=== PATIENT | female | born 1945 | race Caucasian/White ===

== ENCOUNTER 2023-06-22 13:21 | Inpatient (IN) ==
[2023-06-22] MEDS ORDERED: IOPAMIDOL 100 ML BOTTLE IV ONE (13:22)
[2023-06-22 15:28] LABS: POC Calcium, Ionized 1.04 (1.16-1.32); POC Creatinine 0.9 (0.6-1.2); POC Potassium 3.6 (3.3-5.1)
[2023-06-22 16:02] LABS: Basophils # (Auto) 0.04 K/mcL (0.00-0.30); Basophils % (Auto) 0.6 % (0.0-2.0); Eosinophils # (Auto) 0.21 K/mcL (0.00-0.70); Hematocrit 43.7 % (34.1-44.9); Hemoglobin 14.3 g/dL (11.2-15.7); Lymphocytes # (Auto) 1.37 K/mcL (1.50-4.80); Lymphocytes % (Auto) 19.7 % (15.5-49.0); Mean Corpuscular HGB Conc 32.7 g/dL (31.0-36.0); Mean Platelet Volume 8.9 fL (8.8-12.5); Monocytes # (Auto) 0.61 K/mcL (0.10-0.90); Monocytes % (Auto) 8.8 % (1.0-12.0); Neutrophils % (Auto) 67.5 % (38.0-78.0); Platelet Count 273 K/mcL (140-440); RBC 4.65 M/mcL (3.59-5.38); Red Cell Distribution Width 12.9 % (11.5-14.5)
[2023-06-22] MEDS ORDERED: METHOCARBAMOL 1,000 MG/10 ML VIAL IV ONE (17:30)
[2023-06-22] MEDS: HYDROmorphone 0.5 MG/0.5 ML SYRINGE IV PRN ×2 (17:56→19:24)
[2023-06-22] MEDS ORDERED: traMADol (PP) 50 MG TABLET (#4) PO PRN (22:56)
[2023-06-22] MEDS ORDERED: SUMAtriptan SUCCINATE 50 MG TABLET PO PRN (22:56)
[2023-06-22] MEDS ORDERED: NITROGLYCERIN 0.4 MG TAB.SUBL SL PRN (22:56)
[2023-06-22 22:57] LABS: Phosphorous 2.7 mg/dL (2.5-4.5); Thyroid Stimulating Hormone 4.12 uIU/mL (0.27-5.01)
[2023-06-23] MEDS: HYDROmorphone 0.5 MG/0.5 ML SYRINGE IV PRN ×4 (00:32→09:04)
[2023-06-23] MEDS: 0.9 % SODIUM CHLORIDE 10 ML SYRINGE IV SCH ×3 (05:40→20:49)
[2023-06-23] MEDS: OMEPRAZOLE 20 MG CAPSULE PO SCH ×2 (06:51→16:34)
[2023-06-23] MEDS: LEVOTHYROXINE SODIUM 112 MCG TABLET PO SCH (06:51)
[2023-06-23 07:10] LABS: Hematocrit 40.4 % (34.1-44.9); Hemoglobin 13.4 g/dL (11.2-15.7); Mean Cell Volume 93.7 fL (80.0-100.0); Mean Corpuscular HGB Conc 33.2 g/dL (31.0-36.0); Platelet Count 270 K/mcL (140-440); RBC 4.31 M/mcL (3.59-5.38); Red Cell Distribution Width 12.9 % (11.5-14.5); WBC 5.7 K/mcL (4.5-11.0)
[2023-06-23 08:12] LABS: Blood Urea Nitrogen 10 mg/dL (8-23); Calcium 8.8 mg/dL (8.6-10.4); Carbon Dioxide 25 mmol/L (22-30); Chloride 100 mmol/L (96-108); Glomerular Filtration Rate 70; Glucose 99 mg/dL (70-105)
[2023-06-23] MEDS: POTASSIUM CHLORIDE 20 MEQ TABLET PO SCH ×2 (08:49→19:46)
[2023-06-23] MEDS: DOCUSATE SODIUM 100 MG CAPSULE PO SCH ×2 (08:49→20:49)
[2023-06-23] MEDS: HYDROXYCHLOROQUINE 200 MG TABLET PO SCH ×2 (08:49→20:49)
[2023-06-23] MEDS: NITROFURANTOIN SR 100 MG CAPSULE PO SCH (08:49)
[2023-06-23] MEDS: predniSONE 5 MG TABLET PO SCH (08:50)
[2023-06-23] MEDS: CALCIUM (OYSTER SHELL) 500 MG TABLET PO SCH ×2 (08:50→20:49)
[2023-06-23] MEDS: LEFLUNOMIDE 20 MG TABLET PO SCH (08:51)
[2023-06-23] MEDS: HEPARIN 5,000 UNIT/ML VIAL SQ SCH ×2 (09:04→20:49)
[2023-06-23 09:44] LABS: Eosinophils % (Manual) 2 % (0-7); Lymphocytes % 27 % (15-49); Monocytes % (Manual) 9 % (1-12); Platelet Estimate NORMAL (Normal); RBC Morphology NORMAL (Normal); Reactive Lymphocytes 1 % (0-2); Segmented Neutrophils % 61 % (38-78)
[2023-06-23] MEDS: ONDANSETRON 4 MG/2 ML VIAL IV PRN ×2 (10:45→20:52)
[2023-06-23] MEDS: HYDROmorphone 2 MG TABLET PO PRN (19:44)
[2023-06-23] MEDS: SENNOSIDES 1 TABLET PO SCH (20:48)
[2023-06-23] MEDS: VENLAFAXINE 75 MG CAP.XL.24H PO SCH (20:49)
[2023-06-23] MEDS: AMITRIPTYLINE 25 MG TABLET PO SCH (20:49)
[2023-06-23] MEDS: rOPINIRole 0.25 MG TABLET PO SCH (20:49)
[2023-06-24] MEDS: oxyCODONE IR 5 MG TABLET PO PRN ×3 (02:35→17:16)
[2023-06-24] MEDS: ACETAMINOPHEN 325 MG TABLET PO PRN (04:14)
[2023-06-24 06:53] LABS: Hemoglobin 12.9 g/dL (11.2-15.7); Mean Cell Volume 94.8 fL (80.0-100.0); Mean Corpuscular HGB Conc 32.3 g/dL (31.0-36.0); Mean Platelet Volume 9.3 fL (8.8-12.5); Platelet Count 259 K/mcL (140-440); RBC 4.22 M/mcL (3.59-5.38); WBC 6.7 K/mcL (4.5-11.0)
[2023-06-24 07:22] LABS: Blood Urea Nitrogen 8 mg/dL (8-23); Calcium 8.8 mg/dL (8.6-10.4); Carbon Dioxide 29 mmol/L (22-30); Chloride 104 mmol/L (96-108); Glomerular Filtration Rate 61; Glucose 87 mg/dL (70-105)
[2023-06-24] MEDS: NITROFURANTOIN SR 100 MG CAPSULE PO SCH (09:06)
[2023-06-24] MEDS: OMEPRAZOLE 20 MG CAPSULE PO SCH ×2 (09:07→17:16)
[2023-06-24] MEDS: LEVOTHYROXINE SODIUM 112 MCG TABLET PO SCH (09:07)
[2023-06-24] MEDS: predniSONE 5 MG TABLET PO SCH (09:07)
[2023-06-24] MEDS: HYDROXYCHLOROQUINE 200 MG TABLET PO SCH ×2 (09:08→20:36)
[2023-06-24] MEDS: POTASSIUM CHLORIDE 20 MEQ TABLET PO SCH ×3 (09:14→17:16)
[2023-06-24] MEDS: 0.9 % SODIUM CHLORIDE 10 ML SYRINGE IV SCH ×3 (09:15→20:37)
[2023-06-24] MEDS: DOCUSATE SODIUM 100 MG CAPSULE PO SCH ×2 (09:22→20:36)
[2023-06-24] MEDS: CALCIUM (OYSTER SHELL) 500 MG TABLET PO SCH ×2 (09:22→20:37)
[2023-06-24] MEDS: LEFLUNOMIDE 20 MG TABLET PO SCH (09:24)
[2023-06-24] MEDS: HEPARIN 5,000 UNIT/ML VIAL SQ SCH ×2 (09:25→20:36)
[2023-06-24 13:19] LABS: Basophils % (Manual) 1 % (0-2); Eosinophils % (Manual) 2 % (0-7); Lymphocytes % 19 % (15-49); Monocytes % (Manual) 7 % (1-12); Platelet Estimate NORMAL (Normal); RBC Morphology NORMAL (Normal); Reactive Lymphocytes 1 % (0-2); Segmented Neutrophils % 70 % (38-78)
[2023-06-24] MEDS: rOPINIRole 0.25 MG TABLET PO SCH (20:36)
[2023-06-24] MEDS: AMITRIPTYLINE 25 MG TABLET PO SCH (20:36)
[2023-06-24] MEDS: VENLAFAXINE 75 MG CAP.XL.24H PO SCH (20:37)
[2023-06-24] MEDS: SENNOSIDES 1 TABLET PO SCH (20:37)
[2023-06-24] MEDS: GABAPENTIN 300 MG CAPSULE PO PRN (20:43)
[2023-06-25] MEDS: 0.9 % SODIUM CHLORIDE 10 ML SYRINGE IV SCH ×3 (06:24→20:24)
[2023-06-25 06:35] LABS: Hematocrit 43.8 % (34.1-44.9); Hemoglobin 13.8 g/dL (11.2-15.7); Mean Corpuscular HGB Conc 31.5 g/dL (31.0-36.0); Platelet Count 236 K/mcL (140-440); RBC 4.47 M/mcL (3.59-5.38)
[2023-06-25 07:11] LABS: Blood Urea Nitrogen 10 mg/dL (8-23); Calcium 8.9 mg/dL (8.6-10.4); Carbon Dioxide 25 mmol/L (22-30); Chloride 103 mmol/L (96-108); Glomerular Filtration Rate 82; Glucose 76 mg/dL (70-105)
[2023-06-25] MEDS: oxyCODONE IR 5 MG TABLET PO PRN ×2 (07:33→14:27)
[2023-06-25] MEDS: LEVOTHYROXINE SODIUM 112 MCG TABLET PO SCH (07:33)
[2023-06-25] MEDS: OMEPRAZOLE 20 MG CAPSULE PO SCH ×2 (07:33→17:44)
[2023-06-25] MEDS: predniSONE 5 MG TABLET PO SCH (07:33)
[2023-06-25] MEDS: POTASSIUM CHLORIDE 20 MEQ TABLET PO SCH ×2 (07:33→17:44)
[2023-06-25 08:53] LABS: Eosinophils % (Manual) 7 % (0-7); Lymphocytes % 26 % (15-49); Monocytes % (Manual) 5 % (1-12); Platelet Estimate NORMAL (Normal); RBC Morphology NORMAL (Normal); Segmented Neutrophils % 62 % (38-78)
[2023-06-25] MEDS: HEPARIN 5,000 UNIT/ML VIAL SQ SCH ×2 (09:07→20:23)
[2023-06-25] MEDS: NITROFURANTOIN SR 100 MG CAPSULE PO SCH (09:08)
[2023-06-25] MEDS: DOCUSATE SODIUM 100 MG CAPSULE PO SCH ×2 (09:08→21:29)
[2023-06-25] MEDS: LEFLUNOMIDE 20 MG TABLET PO SCH (09:08)
[2023-06-25] MEDS: HYDROXYCHLOROQUINE 200 MG TABLET PO SCH ×2 (09:08→20:24)
[2023-06-25] MEDS: CALCIUM (OYSTER SHELL) 500 MG TABLET PO SCH ×2 (09:08→21:27)
[2023-06-25] MEDS: METOPROLOL SUCCINATE 50 MG TAB.XL.24H PO SCH (11:02)
[2023-06-25 12:23] LABS: Blood Urea Nitrogen 10 mg/dL (8-23); Carbon Dioxide 29 mmol/L (22-30); Chloride 101 mmol/L (96-108); Glomerular Filtration Rate 70; Glucose 89 mg/dL (70-105)
[2023-06-25] MEDS: ONDANSETRON 4 MG/2 ML VIAL IV PRN (14:27)
[2023-06-25] MEDS: ACETAMINOPHEN 325 MG TABLET PO PRN (17:47)
[2023-06-25] MEDS: SUMAtriptan SUCCINATE 50 MG TABLET PO PRN (19:19)
[2023-06-25] MEDS: rOPINIRole 0.25 MG TABLET PO SCH (20:24)
[2023-06-25] MEDS: GABAPENTIN 300 MG CAPSULE PO PRN (20:24)
[2023-06-25] MEDS: AMITRIPTYLINE 25 MG TABLET PO SCH (20:24)
[2023-06-25] MEDS: ZOLPIDEM 5 MG TABLET PO PRN (20:24)
[2023-06-25] MEDS: VENLAFAXINE 75 MG CAP.XL.24H PO SCH (20:25)
[2023-06-25] MEDS: SENNOSIDES 1 TABLET PO SCH (21:29)
[2023-06-26] MEDS: oxyCODONE IR 5 MG TABLET PO PRN ×3 (04:16→18:54)
[2023-06-26] MEDS: 0.9 % SODIUM CHLORIDE 10 ML SYRINGE IV SCH ×3 (05:03→22:30)
[2023-06-26] MEDS: OMEPRAZOLE 20 MG CAPSULE PO SCH ×2 (07:24→16:33)
[2023-06-26] MEDS: POTASSIUM CHLORIDE 20 MEQ TABLET PO SCH ×2 (07:25→16:33)
[2023-06-26] MEDS: LEVOTHYROXINE SODIUM 112 MCG TABLET PO SCH (07:25)
[2023-06-26] MEDS: predniSONE 5 MG TABLET PO SCH (07:25)
[2023-06-26] MEDS: CYCLOBENZAPRINE 10 MG TABLET PO PRN ×3 (07:25→22:16)
[2023-06-26] MEDS: HEPARIN 5,000 UNIT/ML VIAL SQ SCH ×2 (08:47→23:41)
[2023-06-26] MEDS: METOPROLOL SUCCINATE 50 MG TAB.XL.24H PO SCH (08:47)
[2023-06-26] MEDS: LEFLUNOMIDE 20 MG TABLET PO SCH (08:47)
[2023-06-26] MEDS: DOCUSATE SODIUM 100 MG CAPSULE PO SCH ×2 (08:47→22:17)
[2023-06-26] MEDS: NITROFURANTOIN SR 100 MG CAPSULE PO SCH (08:47)
[2023-06-26] MEDS: HYDROXYCHLOROQUINE 200 MG TABLET PO SCH ×2 (08:47→22:16)
[2023-06-26] MEDS: CALCIUM (OYSTER SHELL) 500 MG TABLET PO SCH ×2 (08:47→22:16)
[2023-06-26] MEDS: SUMAtriptan SUCCINATE 50 MG TABLET PO PRN (18:53)
[2023-06-26] MEDS: HYDROmorphone 0.5 MG/0.5 ML SYRINGE IV PRN ×2 (19:03→22:23)
[2023-06-26] MEDS: rOPINIRole 0.25 MG TABLET PO SCH (22:16)
[2023-06-26] MEDS: GABAPENTIN 300 MG CAPSULE PO PRN (22:16)
[2023-06-26] MEDS: AMITRIPTYLINE 25 MG TABLET PO SCH (22:16)
[2023-06-26] MEDS: VENLAFAXINE 75 MG CAP.XL.24H PO SCH (22:16)
[2023-06-26] MEDS: SENNOSIDES 1 TABLET PO SCH (22:16)
[2023-06-26] MEDS: ZOLPIDEM 5 MG TABLET PO PRN (22:17)
[2023-06-26] MEDS: HYDROmorphone 2 MG TABLET PO PRN (23:38)
[2023-06-27] MEDS: oxyCODONE IR 5 MG TABLET PO PRN ×2 (00:05→06:09)
[2023-06-27] MEDS: HYDROmorphone 0.5 MG/0.5 ML SYRINGE IV PRN (02:15)
[2023-06-27] MEDS: LEVOTHYROXINE SODIUM 112 MCG TABLET PO SCH ×2 (05:17→06:47)
[2023-06-27] MEDS: 0.9 % SODIUM CHLORIDE 10 ML SYRINGE IV SCH (05:42)
[2023-06-27] MEDS: ONDANSETRON 4 MG/2 ML VIAL IV PRN (07:45)
[2023-06-27] MEDS: POTASSIUM CHLORIDE 20 MEQ TABLET PO SCH (07:45)
[2023-06-27] MEDS: ACETAMINOPHEN 325 MG TABLET PO PRN (07:46)
[2023-06-27] MEDS: OMEPRAZOLE 20 MG CAPSULE PO SCH (07:47)
[2023-06-27] MEDS: predniSONE 5 MG TABLET PO SCH (07:47)
[2023-06-27] MEDS: SUMAtriptan SUCCINATE 50 MG TABLET PO PRN (07:57)
[2023-06-27] MEDS: LEFLUNOMIDE 20 MG TABLET PO SCH (10:52)
[2023-06-27] MEDS: NITROFURANTOIN SR 100 MG CAPSULE PO SCH (10:52)
[2023-06-27] MEDS: DOCUSATE SODIUM 100 MG CAPSULE PO SCH (10:52)
[2023-06-27] MEDS: METOPROLOL SUCCINATE 50 MG TAB.XL.24H PO SCH (10:52)
[2023-06-27] MEDS: HYDROXYCHLOROQUINE 200 MG TABLET PO SCH (10:52)
[2023-06-27] MEDS: HEPARIN 5,000 UNIT/ML VIAL SQ SCH (10:52)
[2023-06-27] MEDS: CALCIUM (OYSTER SHELL) 500 MG TABLET PO SCH (10:52)
== END 2023-06-27 14:50 | DRG 185 ==
LOC: ED 13:21 → MEDSUR 22:35
PROVIDERS: ADMIT Internal Medicine Critical Care Medicine; ATTEND Internal Medicine Critical Care Medicine

== ENCOUNTER 2024-05-09 09:30 | Inpatient (IN) ==
[2024-04-30 11:57] LABS: Basophils # (Auto) 0.02 K/mcL (0.00-0.30); Basophils % (Auto) 0.2 % (0.0-2.0); Eosinophils # (Auto) 0.25 K/mcL (0.00-0.70); Eosinophils % (Auto) 3.1 % (0.0-7.0); Hematocrit 38.2 % (34.1-44.9); Hemoglobin 12.6 g/dL (11.2-15.7); Lymphocytes # (Auto) 0.81 K/mcL (1.50-4.80); Mean Cell Volume 94.8 fL (80.0-100.0); Monocytes # (Auto) 0.68 K/mcL (0.10-0.90); Monocytes % (Auto) 8.4 % (1.0-12.0); Neutrophils % (Auto) 78.1 % (38.0-78.0); Platelet Count 219 K/mcL (140-440); RBC 4.03 M/mcL (3.59-5.38); Red Cell Distribution Width 12.7 % (11.5-14.5); WBC 8.1 K/mcL (4.5-11.0)
[2024-04-30 12:23] LABS: ALT/SGPT 18 U/L (<40); AST/SGOT 38 U/L (<32); Albumin 4.2 gm/dL (3.2-5.2); Albumin/Globulin Ratio 1.8 (1.0-2.3); Alkaline Phosphatase 88 U/L (39-117); Bilirubin,Total 0.4 mg/dL (0.1-1.0); Blood Urea Nitrogen 13 mg/dL (8-23); Calcium 9.4 mg/dL (8.6-10.4); Carbon Dioxide 27 mmol/L (22-30); Chloride 90 mmol/L (96-108); Globulin 2.4 gm/dL (2.2-3.7); Glomerular Filtration Rate 30; Glucose 99 mg/dL (70-105); Potassium 4.8 mmol/L (3.3-5.1); Sodium 127 mmol/L (133-145)
[2024-04-30 12:44] LABS: Appearance,Urine Clear (Clear); Bilirubin,Urine Negative (Negative); Color,Urine Yellow; Culture Indicated,Urine No; Glucose,Urine (UA) Negative (Negative); Ketones,Urine Trace mg/dL (Negative); Leukocyte Esterase,Urine Negative /uL (Negative); Nitrate,Urine Negative (Negative); PH,Urine 5.5 (5.0-9.0); Protein,Urine 30 mg/dL (Negative); Specific Gravity,Urine 1.025 (1.000-1.035); Urine Blood Negative ery/mcL (Negative); Urine Cellular Cast 2 /lph (0-0); Urine RBC 0 /hpf (0-3); Urine Squamous Epithelial Cell 11 /hpf (0-4); Urine WBC 0 /hpf (0-4); Urobilinogen,Urine Normal
[2024-05-09] MEDS: CELECOXIB 200 MG CAPSULE PO SCH (11:03)
[2024-05-09] MEDS: oxyCODONE 10 MG TAB.ER.12H PO SCH (11:03)
[2024-05-09] MEDS: PREGABALIN 75 MG CAPSULE PO SCH (11:04)
[2024-05-09] MEDS ORDERED: PROPOFOL 200 MG/20 ML VIAL IV ONE ×2 (11:26→13:42)
[2024-05-09] MEDS ORDERED: ONDANSETRON 4 MG/2 ML VIAL ONE (11:28)
[2024-05-09] MEDS ORDERED: GLYCOPYRROLATE 0.2 MG/ML VIAL IV ONE (11:28)
[2024-05-09] MEDS ORDERED: LIDOCAINE 2% PF 5 ML VIAL ONE ×2 (11:28→14:18)
[2024-05-09] MEDS ORDERED: DEXAMETHASONE 10 MG/ML VIAL ONE (11:28)
[2024-05-09] MEDS ORDERED: MAGNESIUM SULFATE 2 GM/50 ML BAG IV ONE (11:31)
[2024-05-09 12:31] LABS: Blood Urea Nitrogen 16 mg/dL (8-23); Calcium 8.9 mg/dL (8.6-10.4); Carbon Dioxide 26 mmol/L (22-30); Chloride 93 mmol/L (96-108); Glomerular Filtration Rate 39; Glucose 87 mg/dL (70-105); Potassium 3.9 mmol/L (3.3-5.1); Sodium 129 mmol/L (133-145)
[2024-05-09] MEDS ORDERED: ROCURONIUM 10 MG/ML ML IV ONE (12:41)
[2024-05-09] MEDS: ceFAZolin 2 GM in DEXTROSE 5% IN WATER 50 ML IV SCH (12:42)
[2024-05-09] MEDS ORDERED: fentaNYL 100 MCG/2 ML VIAL ONE ×2 (12:42→13:42)
[2024-05-09] MEDS ORDERED: HYDROmorphone 1 MG/ML SYRINGE ONE (12:59)
[2024-05-09] MEDS ORDERED: SUGAMMADEX SODIUM 200 MG/2 ML VIAL IV ONE (13:08)
[2024-05-09] MEDS ORDERED: TRANEXAMIC ACID 1,000 MG/10 ML VIAL ONE (13:08)
[2024-05-09] MEDS ORDERED: ONDANSETRON 4 MG/2 ML VIAL IV PRN (14:11)
[2024-05-09] MEDS ORDERED: MAGNESIUM HYDROXIDE 30 ML ORAL.SUSP PO PRN (14:11)
[2024-05-09] MEDS ORDERED: BISACODYL 10 MG SUPP.RECT PR PRN (14:11)
[2024-05-09] MEDS ORDERED: POLYETHYLENE GLYCOL 3350 17 GM PACKET PO PRN (14:11)
[2024-05-09] MEDS ORDERED: FLEETS ADULT 1 DOSE ENEMA PR PRN (14:11)
[2024-05-09] MEDS: 0.9 % SODIUM CHLORIDE 9 ML, KETOROLAC 30 MG, ROPIVACAINE HCL/PF 49.5 ML, EPINEPHrine 0.... IJ SCH (14:22)
[2024-05-09] MEDS ORDERED: PHENAZOPYRIDINE 200 MG TABLET PO PRN (14:23)
[2024-05-09] MEDS ORDERED: NITROGLYCERIN 0.4 MG TAB.SUBL SL PRN (14:23)
[2024-05-09] MEDS ORDERED: NON FORMULARY MEDICATION 1 DOSE MISCELL (Epinephrine 0.3 mg/0.3 mL auto-injector) IM PRN (14:23)
[2024-05-09] MEDS ORDERED: ESTRADIOL VAG CREAM 42GM TUBE VAG SCH (14:30)
[2024-05-09] MEDS ORDERED: LABETALOL HCL 20 MG/4 ML VIAL IV PRN (15:08)
[2024-05-09] MEDS: 0.9 % SODIUM CHLORIDE 1,000 ML IV SCH (15:41)
[2024-05-09 17:00] LABS: Thyroid Stimulating Hormone 8.17 uIU/mL (0.27-5.01); Uric Acid 4.2 mg/dL (2.5-8.0)
[2024-05-09] MEDS: KETOROLAC 15 MG/ML VIAL IV SCH (17:29)
[2024-05-09] MEDS: TRANEXAMIC ACID 1,000 MG/10 ML VIAL IV SCH (18:00)
[2024-05-09 18:03] LABS: Appearance,Urine CLEAR (Clear); Bilirubin,Urine Negative (Negative); Color,Urine YELLOW; Culture Indicated,Urine No; Glucose,Urine (UA) Negative (Negative); Ketones,Urine 5 mg/dL (Negative); Leukocyte Esterase,Urine Negative /uL (Negative); Nitrate,Urine Negative (Negative); Protein,Urine Negative (Negative); Urine Blood Negative (Negative); Urobilinogen,Urine Negative
[2024-05-09 18:12] LABS: Sodium, Urine Random 40 mmol/L
[2024-05-09 18:18] LABS: Osmolality,Urine 289 mOSM/kg (80-1000)
[2024-05-09] MEDS: MAGNESIUM OXIDE 400 MG TABLET PO SCH (20:22)
[2024-05-09] MEDS: ASPIRIN 81 MG TAB.CHEW PO SCH (20:22)
[2024-05-09] MEDS: ceFAZolin 1 GM VIAL IV SCH (20:22)
[2024-05-09] MEDS: DOCUSATE SODIUM 100 MG CAPSULE PO SCH (20:22)
[2024-05-09] MEDS: AMITRIPTYLINE 25 MG TABLET PO SCH (20:22)
[2024-05-09] MEDS: SENNOSIDES 1 TABLET PO SCH (20:22)
[2024-05-09] MEDS: BENZOCAINE/MENTHOL 1 LOZENGE PO PRN (20:22)
[2024-05-09] MEDS: GABAPENTIN 100 MG CAPSULE PO SCH (20:22)
[2024-05-09] MEDS: 0.9 % SODIUM CHLORIDE 10 ML SYRINGE IV SCH (20:23)
[2024-05-09] MEDS: MELATONIN 3 MG TABLET PO PRN (20:23)
[2024-05-09] MEDS: oxyCODONE IR 5 MG TABLET PO PRN (20:36)
[2024-05-09] MEDS: ONDANSETRON 4 MG ODT TABLET SL PRN (20:36)
[2024-05-10 06:29] LABS: Blood Urea Nitrogen 18 mg/dL (8-23); Calcium 8.6 mg/dL (8.6-10.4); Carbon Dioxide 27 mmol/L (22-30); Chloride 94 mmol/L (96-108); Glomerular Filtration Rate 47; Glucose 126 mg/dL (70-105); Potassium 4.2 mmol/L (3.3-5.1); Sodium 130 mmol/L (133-145)
[2024-05-10] MEDS: predniSONE 5 MG TABLET PO SCH (07:19)
[2024-05-10] MEDS: LEVOTHYROXINE SODIUM 112 MCG TABLET PO SCH (07:19)
[2024-05-10] MEDS: POTASSIUM CHLORIDE 10 MEQ TABLET PO SCH (07:19)
[2024-05-10] MEDS: OMEPRAZOLE 20 MG CAPSULE PO SCH (07:19)
[2024-05-10] MEDS: FERROUS SULFATE 325 MG TABLET PO SCH (07:19)
[2024-05-10] MEDS: ESTRADIOL 1 MG TABLET PO SCH (08:05)
[2024-05-10] MEDS: VITAMIN D3 125 MCG TABLET PO SCH (08:06)
[2024-05-10] MEDS: SODIUM CHLORIDE 1 GM TABLET PO SCH (08:22)
[2024-05-10] MEDS ORDERED: LOSARTAN 50 MG TABLET PO SCH (09:00)
[2024-05-10] MEDS ORDERED: PRASTERONE 50 MG PO SCH (09:00)
[2024-05-10] MEDS ORDERED: CYANOCOBALAMIN (VITAMIN B-12) 1,000 MCG TABLET PO SCH (09:00)
[2024-05-10] MEDS ORDERED: MELOXICAM 7.5 MG TABLET PO SCH (09:00)
[2024-05-10 09:29] LABS: Hemoglobin 10.2 g/dL (11.2-15.7)
[2024-05-10] MEDS: CYCLOBENZAPRINE 10 MG TABLET PO PRN (18:48)
[2024-05-10] MEDS: morphine 4 MG/ML VIAL IV PRN (18:48)
[2024-05-11] MEDS: LOSARTAN 50 MG TABLET PO SCH (08:18)
[2024-05-16] MEDS ORDERED: CLOBETASOL PROPIONATE 1 DOSE TUBE TOPICAL SCH (09:00)
== END 2024-05-12 10:30 | DRG 470 ==
LOC: MEDSUR 10:36 → EDSTATUS 13:15
PROVIDERS: ADMIT Orthopaedic Surgery; ATTEND Orthopaedic Surgery